=== PATIENT | female | born 1985 | race Caucasian/White ===

== ENCOUNTER → 2019-02-23 | Outpatient (CLI) | payer OTHER ==
--- NOTE | 2019-02-23 18:30 | Diagnostic Imaging Report ---
EXAMINATION: Right foot at 03:42 p.m. INDICATION: Foot pain. FINDINGS: Three views were obtained. COMPARISON: There are no prior studies available for comparison. There is no fracture, dislocation, or acute bony abnormality evident. The Lisfranc joint seems well maintained. The soft tissues are generally unremarkable. There may be mild soft tissue edema lateral to the head of the fifth metatarsal, however. IMPRESSION: There is no evidence for an acute bony abnormality. Dictated by: Dictated on workstation # [id number]
== END ==
LOC: RAD 15:31
PROVIDERS: ATTEND Pediatrics
DX: M79.671 Pain in right foot (principal)
CPT/HCPCS: 73630

== ENCOUNTER 2019-08-16 18:05 | Emergency (ER) | payer OTHER ==
[~2019-08-16] VITALS: Ht 162 cm; Wt 72.5 kg
--- OUTSIDE RECORDS SUMMARY | 2019-08-16 18:10 | XMS REPORT | Continuity of Care Document ---
Author Organization Unknown Address Unknown Phone Unavailable Allergies There is no data. Medications There is no data. Problems Date Dx Coded Attending Type Code Diagnosis Diagnosed By 02/25/2019 ZION HAYES MD, Ot M79.671 PAIN IN RIGHT FOOT 03/02/2019 ZION HAYES MD, Ot M79.671 PAIN IN RIGHT FOOT Procedures There is no data. Results There is no data. Encounters ACCT No. Visit Date/Time Discharge Status Pt. Type Provider Facility Loc./Unit Complaint [id number] 08/10/2019 15:40:00 08/10/2019 23:59: 59 [facility] Outpatient [facility] [id number] 02/23/2019 15:31:00 019 23:59:59 [facility] Outpatient ABIGAIL WALTERS, ZION cosby [facility] RAD RIGHT FOOT PAIN
[2019-08-16] MEDS ORDERED: CITA20TA12 PO (18:41)
[2019-08-16] MEDS ORDERED: NORE-93 PO (18:41)
[2019-08-16] MEDS ORDERED: ACETAMINOPHEN 325 MG TABLET PO STA (19:04)
--- NOTE | 2019-08-16 19:13 | NUR ---
Chelsey Bernabe APRN in patient's room with appropriate PPE on. COVID-19 swab completed and lab drawn. Karla HERNANDEZ outside room and collected swabs and blood. All labs double bagged and COVID-19 swab paperwork placed in bag and carried to lab. Paperwork sent to Farnaz HERNANDEZ and fiber locking supervisor notified. Droplet precautions sign placed on outside of door.
[2019-08-16 19:36] LABS: BASOPHILS % (AUTO) 0 % (0-10); EOSINOPHILS # (AUTO) 0.2 10^3/uL (0.0-0.3); EOSINOPHILS % (AUTO) 2 % (0-10); HEMATOCRIT 40 % (35-52); HEMOGLOBIN 12.8 G/DL (11.5-16.0); LYMPHOCYTES # (AUTO) 3.1 X 10^3 (1.0-4.0); LYMPHOCYTES % (AUTO) 31 % (12-44); MEAN CORPUSCULAR HEMOGLOBIN 28 PG (25-34); MEAN CORPUSCULAR HGB CONC 32 G/DL (32-36); MEAN CORPUSCULAR VOLUME 88 FL (80-99); MEAN PLATELET VOLUME 9.7 FL (7.4-10.4); MONOCYTES # (AUTO) 0.8 X 10^3 (0.0-1.0); MONOCYTES % (AUTO) 8 % (0-12); NEUTROPHILS # (AUTO) 5.8 X 10^3 (1.8-7.8); NEUTROPHILS % (AUTO) 58 % (42-75); PLATELET COUNT 348 10^3/uL (130-400); RED CELL DISTRIBUTION WIDTH 13.6 % (10.0-14.5)
--- NOTE | 2019-08-16 19:37 | Diagnostic Imaging Report ---
INDICATION: Shortness of breath with cough and congestion. FINDINGS: There are no regions of focal infiltrate or consolidation evident. There is no effusion. There is no pneumothorax. No prominent peripheral interstitial markings are evident or findings of reticulation. Heart size normal. Pulmonary vascularity appears appropriate. There is no narrowing of the tracheal air shadow. IMPRESSION: 1. No radiographic findings of focal infiltrate, effusion or consolidation. No abnormal interstitial opacities are evident by plain radiography. Dictated by: Dictated on workstation # [id number]
--- NOTE | 2019-08-16 19:50 | ED Cough/URI ---
General Chief Complaint: Cough/Cold/Flu Symptoms Stated Complaint: FEVER/COUGH/CONGESTION Nursing Triage Note: Patient ambulatory to ER room 10 with face mask in place. Patient states she has had cough, chest congestion, runny nose and fever x 1 week. She also complains of runny nose and pain to chest with taking a deep breath or coughing. She describes the pain as "my lungs burning". Patient denies any recent travel or being around anyone with positive COVID-19. She states other family mebers are sick with simalr symptoms. Patient was [place] [facility] [place] and was negative for Influeza and Strep. Sepsis Screen: No Definite Risk History of Present Illness Date Seen by Provider: Aug 16, 2019 Time Seen by Provider: 18:40 Initial Comments 34 -year-old female presents for nonproductive cough, sinus congestion and fever, present for the last 7 days. She was tested for influenza and strep 1 week ago that was negative at urgent care. She has no history of exposure to a COVID-19 positive patient, no travel outside of her home and local stores. She works from home. Here children have been coughing and congested, as well. No history of allergic rhinitis, asthma, pneumonia or any other chronic respiratory diseases. Timing/Duration: week, getting worse Severity/Quality: mild, dry cough Prior Episodes/Possible Cause: no prior episodes Associated Symptoms: chest pain/soreness, cough, fever/chills, muscle aches Allergies and Home Medications Allergies Coded Allergies: Penicillins (Verified Allergy, Intermediate, Rash, 08/16/19) cefazolin (Verified Allergy, Intermediate, Rash, 08/16/19) Home Medications Citalopram Hydrobromide 20 Mg Tablet, 20 MG PO DAILY, (Reported) Norethindrone AC-Eth Estradiol 1 Each Tablet, 1 EACH PO DAILY, (Reported) Patient Home Medication List Home Medication List Reviewed: Yes Review of Systems Review of Systems Constitutional: see HPI, fever, malaise Respiratory: see HPI, cough Gastrointestinal: no symptoms reported, see HPI : No All Other Systems Reviewed Negative Unless Noted: Yes Past Mtynakh-Fveukw-Dxjfza Hx Past Med/Social Hx: Reviewed Nursing Past Med/Soc Hx Patient Social History Alcohol Use: Denies Use Recreational Drug Use: No Smoking Status: Never a Smoker 2nd Hand Smoke Exposure: No Recent Foreign Travel: No Contact w/Someone Who Travel: No Recent Infectious Disease Expo: No Recent Hopitalizations: No Physical Abuse: No Sexual Abuse: No Mistreated: No Fear: No Immunizations Up To Date PED Vaccines UTD: Yes Seasonal Allergies Seasonal Allergies: No Past Medical History Surgeries: Yes Tonsillectomy Respiratory: No Cardiac: No Neurological: No Last Menstrual Period: Aug 09, 2019 Female Reproductive Disorders: Endometriosis Genitourinary: No Gastrointestinal: No Musculoskeletal: No Endocrine: No HEENT: No Cancer: No Psychosocial: No Integumentary: No Physical Exam Vital Signs - First Documented 08/16/19 18:29 Temp 37.2 Pulse 100 Resp 16 B/P (MAP) 135/91 (106) Pulse Ox 99 O2 Delivery Room Air Capillary Refill : Less Than 3 Seconds Height: '" Weight: lbs. oz. kg; 27.00 BMI Method: General Appearance: WD/WN, no apparent distress Eyes: Bilateral Eye Normal Inspection, Bilateral Eye PERRL, Bilateral Eye EOMI HEENT: PERRL/EOMI, normal ENT inspection, TMs normal, pharynx normal Neck: non-tender, full range of motion, supple, normal inspection Respiratory: chest non-tender, lungs clear, normal breath sounds Cardiovascular: normal peripheral pulses, regular rate, rhythm Gastrointestinal: normal bowel sounds, non tender, soft; No distended, No guarding, No rebound, No tenderness Extremities: normal range of motion, non-tender, normal inspection, normal capillary refill Neurologic/Psychiatric: no motor/sensory deficits, alert, normal mood/affect, oriented x 3 Skin: normal color, warm/dry Progress/Results/Core Measures Suspected Sepsis Recent Fever Within 48 Hours: Yes Infection Criteria Present: None New/Unexplained Altered Menta: No Sepsis Screen: No Definite Risk SIRS Temperature: Pulse: 100 Respiratory Rate: 16 Laboratory Tests 08/16/19 19:13: White Blood Count 10.0 Blood Pressure 135 /91 Mean: 106 Laboratory Tests 08/16/19 19:13: Creatinine 0.90, Platelet Count 348, Total Bilirubin 0.1 Results/Orders Lab Results Laboratory Tests Test 08/16/19 19:13 Range/Units White Blood Count 10.0 4.3-11.0 10^3/uL Red Blood Count 4.52 4.35-5.85 10^6/uL Hemoglobin 12.8 11.5-16.0 G/DL Hematocrit 40 35-52 % Mean Corpuscular Volume 88 80-99 FL Mean Corpuscular Hemoglobin 28 25-34 PG Mean Corpuscular Hemoglobin Concent 32 32-36 G/DL Red Cell Distribution Width 13.6 10.0-14.5 % Platelet Count 348 130-400 10^3/uL Mean Platelet Volume 9.7 7.4-10.4 FL Neutrophils (%) (Auto) 58 42-75 % Lymphocytes (%) (Auto) 31 12-44 % Monocytes (%) (Auto) 8 0-12 % Eosinophils (%) (Auto) 2 0-10 % Basophils (%) (Auto) 0 0-10 % Neutrophils # (Auto) 5.8 1.8-7.8 X 10^3 Lymphocytes # (Auto) 3.1 1.0-4.0 X 10^3 Monocytes # (Auto) 0.8 0.0-1.0 X 10^3 Eosinophils # (Auto) 0.2 0.0-0.3 10^3/uL Basophils # (Auto) 0.0 0.0-0.1 10^3/uL Sodium Level 140 135-145 MMOL/L Potassium Level 4.0 3.6-5.0 MMOL/L Chloride Level 107 98-107 MMOL/L Carbon Dioxide Level 23 21-32 MMOL/L Anion Gap 10 5-14 MMOL/L Blood Urea Nitrogen 13 7-18 MG/DL Creatinine 0.90 0.60-1.30 MG/DL Estimat Glomerular Filtration Rate > 60 BUN/Creatinine Ratio 14 Glucose Level 93 70-105 MG/DL Calcium Level 9.2 8.5-10.1 MG/DL Corrected Calcium 9.2 8.5-10.1 MG/DL Total Bilirubin 0.1 0.1-1.0 MG/DL Aspartate Amino Transf (AST/SGOT) 28 5-34 U/L Alanine Aminotransferase (ALT/SGPT) 58 H 0-55 U/L Alkaline Phosphatase 94 40-136 U/L Total Protein 7.5 6.4-8.2 GM/DL Albumin 4.0 3.2-4.5 GM/DL Micro Results Microbiology 08/16/19 Influenza Types A,B Antigen (SYLVIE) - Final, Complete My Orders Orders - LAN OROZCO Influenza A And B Antigens (08/16/19 18:14) Cbc With Automated Diff (08/16/19 18:54) Comprehensive Metabolic Panel (08/16/19 18:54) Chest 1 View, Ap/Pa Only (08/16/19 18:54) Acetaminophen Tablet/Caplet (Tylenol T (08/16/19 19:04) Vital Signs/I&O 08/16/19 08/16/19 18:29 20:22 Temp 37.2 37.2 Pulse 100 100 Resp 16 16 B/P (MAP) 135/91 (106) 135/91 (106) Pulse Ox 99 99 O2 Delivery Room Air Room Air Capillary Refill : Less Than 3 Seconds 2 Blood Pressure Mean: 106 Progress Note : Time: 18:40 Progress Note Patient seen and evaluated, will check for influenza and labs. 1919 Flu Neg. Will swab for COVID 19. Patient understands the risks/benefits. She is stable, no resp distress. Tylenol 650 mg orally. 2004 Labs WNL. Continues to be stable, temp 98.9. Discharge instructions and return precautions reviewed with the patient. She'll be notified of her test results when they're available. Discussed at length care for herself and her family members. Departure Impression Primary Impression: Upper respiratory infection Qualified Codes: J06.9 - Acute upper respiratory infection, unspecified Disposition: HOME, SELF-CARE Condition: Improved Departure-Patient Inst. Decision time for Depature: 20:05 Referrals: [facility] [place],LOCAL PHYSICIAN (PCP) Primary Care Physician Patient Instructions: COVID19, Cough, Adult (DC), Viral Upper Respiratory Infection, Adult (DC) Add. Discharge Instructions: Use Tylenol 650 mg every 6-8 hours for fever or pain. Quarantine yourself to home until follow-up testing is confirmed with you. Quarantine your household family members, until test results confirmed. Call your children's mechanics handyman for instructions and care, if their symptoms worsen. Notify your health care provider, by phone, if your symptoms are not improving or worsen. Call any clinic or hospital, prior to arrival, if your symptoms worsen and you need follow up. Rest, increase fluids, and do not have direct contact with anyone outside of your household members, that you have already been around. Return to the emergency dept if difficulty breathing, temperature greater than 101 degrees, not relieved by Tylenol, or new, urgent health care needs. Please call before presenting to any health care location. All discharge instructions reviewed with patient and/or family. Voiced understanding. LAN OROZCO Aug 16, 2019 19:50
[2019-08-16 19:52] LABS: ALANINE AMINOTRANSFERASE 58 U/L (0-55); ALKALINE PHOSPHATASE 94 U/L (40-136); BILIRUBIN,TOTAL 0.1 MG/DL (0.1-1.0); BUN/CREATININE RATIO 14; CALCIUM 9.2 MG/DL (8.5-10.1); CARBON DIOXIDE 23 MMOL/L (21-32); CHLORIDE 107 MMOL/L (98-107); GFR ESTIMATED > 60; GLUCOSE 93 MG/DL (70-105); SODIUM 140 MMOL/L (135-145); TOTAL PROTEIN 7.5 GM/DL (6.4-8.2)
--- NOTE | 2019-08-16 19:59 | NUR ---
Paperwork faxed to [facility].
--- NOTE | 2019-08-16 20:21 | NUR ---
Patient given discharge paperwork including COVID discharge paperwork. Patient advised to quarantine herself at home until results are back.
[2019-08-16 20:22] VITALS: BP 135/91
== END 2019-08-16 20:23 | disposition home or self-care (01) ==
LOC: EDUNIT# 18:05 → ER 18:06
DX: J06.9 Acute upper respiratory infection, unspecified (principal); Z20.818 Contact with and (suspected) exposure to other bacterial communicable diseases
CPT/HCPCS: 36415; 71045; 80053; 85025; 87635; 87804

== ENCOUNTER → 2021-03-24 | Outpatient (CLI) | payer BC ==
[~2021-03-24] MED LIST: CITA20TA12 PO; NORE-93 PO
--- NOTE | 2021-03-24 18:14 | Diagnostic Imaging Report ---
PROCEDURE: MR imaging of the brain without contrast. TECHNIQUE: Multiplanar, multisequence MR imaging of the brain was performed without contrast. INDICATION: Chronic persistent headaches. EXAMINATION: MRI of the brain without contrast 03/24/2021 FINDINGS: There is no evidence for restricted diffusion. There is no acute hemorrhage or infarct. There is no mass, mass effect or midline shift. No hydrocephalus. On FLAIR imaging, there is a tiny focus of of hyperintensity within the left frontal parietal region on image #14. This may be of no significance and could represent a tiny focus of chronic ischemic disease. A demyelinating process could cause a similar appearance but given a single abnormality felt to be less likely but not excluded at this time. This could be followed to assure stability. No other focal abnormalities noted on FLAIR imaging. The midline structures appear unremarkable. Cervical medullary junction within normal limits. There is mild mucosal thickening within the visualized sinuses with no air-fluid levels appreciated. The mastoid air cells clear. IMPRESSION: 1. Single focus of hyperintensity in the left frontal parietal lobe on FLAIR imaging which could represent a tiny focus of chronic ischemic disease. A demyelinating process felt to be less likely but not excluded at this time. Short-term follow-up could reevaluate this process and could be performed with and without contrast to exclude enhancement which would suggest an active demyelinating type process. Remaining brain unremarkable. Dictated by: Dictated on workstation # [id number]
== END ==
LOC: RAD 13:15
PROVIDERS: ATTEND Family Medicine
DX: R51.9 Headache, unspecified (principal)
CPT/HCPCS: 70551

== ENCOUNTER → 2021-04-28 | Outpatient (CLI) | payer BC ==
[~2021-04-28] MED LIST changes: +GADOTERATE 0.5 MMOL/ML (CLARISCAN) 20 ML VIAL IV ONE
--- NOTE | 2021-04-28 15:57 | Diagnostic Imaging Report ---
PROCEDURE: MR imaging of the brain with and without contrast. TECHNIQUE: Multiplanar, multisequence MR imaging of the brain was performed with and without contrast. DATE: April 28, 2021. COMPARISON: MRI brain March 24, 2021. HISTORY: 36-year-old female, headaches. FINDINGS: There is no restricted diffusion. There are no areas of abnormal intracranial susceptibility. The ventricles and CSF spaces are normal in size and configuration for patient age. There is no abnormal extra axial fluid collection. There is no acute intracranial hemorrhage. There is no mass effect or midline shift. There is a redemonstrated punctate focus of T2 and FLAIR hyperintense signal in the left frontal lobe subcortical white matter on axial T2 sequence image 14. There is no additional area of abnormal intracranial signal. There is no abnormal intracranial enhancement. There is normal aeration of the visualized paranasal sinuses and mastoid air cells. IMPRESSION: 1. Redemonstrated small focus of subcortical T2 and FLAIR hyperintense signal in the left frontal lobe which does not enhance or diffusion restrict. This could relate to early changes of chronic small vessel ischemic disease, vasculitis, sequela of chronic migraine headaches, or possibly demyelinating etiology. 2. No new white matter lesion or other area of abnormal intracranial signal. 3. No evidence of an acute intracranial process. Dictated by: Dictated on workstation # [id number]
== END ==
LOC: RAD 13:15
PROVIDERS: ATTEND Pediatrics
DX: R51.9 Headache, unspecified (principal)
CPT/HCPCS: 70553

== ENCOUNTER 2021-06-02 21:07 | Emergency (ER) | payer BC ==
[~2021-06-02] VITALS: Ht 162.6 cm; Wt 86.2 kg
[~2021-06-02 21:07] MED LIST changes: -GADOTERATE 0.5 MMOL/ML (CLARISCAN) 20 ML VIAL IV ONE
[2021-06-02] MEDS ORDERED: KETOROLAC 30 MG/ML VIAL IVP ONE (21:30)
[2021-06-02] MEDS ORDERED: NS IV 1000 ML 1,000 ML IV SCH (21:30)
[2021-06-02] MEDS ORDERED: ONDANSETRON 4 MG/2 ML (SDV) Z0FRAN IVP ONE (21:30)
[2021-06-02] MEDS ORDERED: diphenhydrAMINE 50 MG/ML INJ (BENADRYL) IM ONE (21:30)
--- NOTE | 2021-06-02 21:30 | ED GI ---
General Stated Complaint: VOMM,DIAHRREA, MIGRAINE Source of Information: Patient Exam Limitations: No Limitations History of Present Illness Date Seen by Provider: Jun 02, 2021 Time Seen by Provider: 21:28 Initial Comments Patient is a 36-year-old female who presents ED with vomiting and diarrhea since yesterday. Patient reports 10+ episodes of bilious vomiting without any blood. She reports associated diarrhea 10+ episodes without any mucus or blood. She denies of any specific abdominal pain. She states she feels dehydrated. Start developing a right-sided headache described as throbbing and associated photophobia. History of migraines and states today's pain feels very similar. She believes that the vomiting and diarrhea started before the headache. She is currently scheduled follow-up with neurology next week and was recommended to stop taking any bngx-hoq-ymmsmnc medication for her migraines. Last similar migraine was last week. She denies any fever, chest pain, cough, sore throat, neck pain, dysuria, vaginal bleeding, focal neural deficits, worse headache of her life. Last menstrual cycle 2 weeks ago. Not concern for . Not up-to-date on her Covid vaccine Allergies and Home Medications Allergies Coded Allergies: Penicillins (Verified Allergy, Intermediate, Rash, 08/16/19) cefazolin (Verified Allergy, Intermediate, Rash, 08/16/19) Patient Home Medication List Home Medication List Reviewed: Yes Citalopram Hydrobromide (Celexa) 20 Mg Tablet, 20 MG PO DAILY, (Reported) Entered as Reported by: FRANCIE QUICK on 08/16/191840 Norethindrone AC-Eth Estradiol (Loestrin 21 1-20 Tablet) 1 Each Tablet, 1 EACH PO DAILY, (Reported) Entered as Reported by: FRANCIE QUICK on 08/16/191840 Ondansetron (Ondansetron Odt) 4 Mg Tab.rapdis, 4 MG PO Q4H PRN for NAUSEA/VOMITING-1ST LINE Prescribed by: BARBARA HOPKINS on 06/02/212234 Review of Systems Review of Systems Constitutional: No chills, No diaphoresis, No fever, No malaise; weakness EENTM: No Blurred Vision, No Eye Pain, No Eye Tearing, No Ear Drainage, No Mouth Pain, No Nose Pain, No Throat Pain, No Throat Swelling Respiratory: Denies Cough, Denies SOA With Exertion, Denies SOA at Rest Cardiovascular: Denies Chest Pain, Denies Edema, Denies Irregular Heart Rate Gastrointestinal: Denies Abdominal Pain; Diarrhea, Nausea, Vomiting Genitourinary: Denies Burning, Denies Drainage, Denies Frequency Musculoskeletal: No back pain, No joint pain All Other Systems Reviewed Negative Unless Noted: Yes Past Pwjmpxh-Fackqw-Cjhddb Hx Immunizations Up To Date PED Vaccines UTD: Yes Seasonal Allergies Seasonal Allergies: No Past Medical History Surgeries: Yes Tonsillectomy Respiratory: No Cardiac: No Neurological: No Female Reproductive Disorders: Endometriosis Genitourinary: No Gastrointestinal: No Musculoskeletal: No Endocrine: No HEENT: No Cancer: No Psychosocial: No Integumentary: No Physical Exam Vital Signs Vital Signs - First Documented 06/02/21 21:21 Temp 36.2 Pulse 108 Resp 20 B/P (MAP) 135/99 (111) Pulse Ox 98 O2 Delivery Room Air Capillary Refill : Height/Weight/BMI Height: '" Weight: lbs. oz. kg; 27.00 BMI Method: General Appearance: WD/WN, no apparent distress HEENT: PERRL/EOMI, normal ENT inspection, TMs normal, pharynx normal Neck: non-tender, full range of motion Respiratory: chest non-tender, lungs clear, normal breath sounds, no accessory muscle use Cardiovascular: no edema, no gallop, no JVD, tachycardia Gastrointestinal: normal bowel sounds, non tender, soft, no organomegaly, no pulsatile mass Extremities: normal range of motion, non-tender, normal inspection Back: normal inspection, no CVA tenderness, no vertebral tenderness Neurologic/Psychiatric: lathe operator II-XII nml as tested, no motor/sensory deficits, alert, normal mood/affect, oriented x 3 Progress/Results/Core Measures Results/Orders Lab Results Laboratory Tests Test 06/02/21 21:28 06/02/21 22:34 Range/Units White Blood Count 8.0 4.3-11.0 10^3/uL Red Blood Count 4.89 3.80-5.11 10^6/uL Hemoglobin 14.0 11.5-16.0 g/dL Hematocrit 42 35-52 % Mean Corpuscular Volume 87 80-99 fL Mean Corpuscular Hemoglobin 29 25-34 pg Mean Corpuscular Hemoglobin Concent 33 32-36 g/dL Red Cell Distribution Width 13.2 10.0-14.5 % Platelet Count 329 130-400 10^3/uL Mean Platelet Volume 9.8 9.0-12.2 fL Immature Granulocyte % (Auto) 1 % Neutrophils (%) (Auto) 76 H 42-75 % Lymphocytes (%) (Auto) 17 12-44 % Monocytes (%) (Auto) 7 0-12 % Eosinophils (%) (Auto) 0 0-10 % Basophils (%) (Auto) 0 0-10 % Neutrophils # (Auto) 6.0 1.8-7.8 10^3/uL Lymphocytes # (Auto) 1.4 1.0-4.0 10^3/uL Monocytes # (Auto) 0.5 0.0-1.0 10^3/uL Eosinophils # (Auto) 0.0 0.0-0.3 10^3/uL Basophils # (Auto) 0.0 0.0-0.1 10^3/uL Immature Granulocyte # (Auto) 0.1 0.0-0.1 10^3/uL Sodium Level 138 135-145 MMOL/L Potassium Level 3.5 L 3.6-5.0 MMOL/L Chloride Level 102 98-107 MMOL/L Carbon Dioxide Level 21 21-32 MMOL/L Anion Gap 15 H 5-14 MMOL/L Blood Urea Nitrogen 17 7-18 MG/DL Creatinine 0.86 0.60-1.30 MG/DL Estimat Glomerular Filtration Rate 75 BUN/Creatinine Ratio 20 Glucose Level 127 H 70-105 MG/DL Calcium Level 8.9 8.5-10.1 MG/DL Corrected Calcium 8.8 8.5-10.1 MG/DL Total Bilirubin 0.4 0.1-1.0 MG/DL Aspartate Amino Transf (AST/SGOT) 77 H 5-34 U/L Alanine Aminotransferase (ALT/SGPT) 106 H 0-55 U/L Alkaline Phosphatase 87 40-136 U/L Total Protein 8.3 H 6.4-8.2 GM/DL Albumin 4.1 3.2-4.5 GM/DL Lipase 6 L 8-78 U/L Serum Test, Qualitative NEGATIVE NEGATIVE Influenza Type A (RT-PCR) Not Detected Not Detecte Influenza Type B (RT-PCR) Not Detected Not Detecte SARS-CoV-2 RNA (RT-PCR) Not Detected Not Detecte Urine Color YELLOW Urine Clarity CLEAR Urine pH 6.0 5-9 Urine Specific [place] >=1.030 1.016-1.022 Urine Protein 1+ H NEGATIVE Urine Glucose (UA) NEGATIVE NEGATIVE Urine Ketones 1+ H NEGATIVE Urine Nitrite NEGATIVE NEGATIVE Urine Bilirubin NEGATIVE NEGATIVE Urine Urobilinogen 0.2 < = 1.0 MG/DL Urine Leukocyte Esterase NEGATIVE NEGATIVE Urine RBC (Auto) NEGATIVE NEGATIVE Urine RBC 0-2 /HPF Urine WBC 0-2 /HPF Urine Squamous Epithelial Cells 2-5 /HPF Urine Crystals NONE /LPF Urine Bacteria MODERATE H /HPF Urine Casts NONE /LPF Urine Mucus LARGE H /LPF Urine Culture Indicated YES Micro Results Microbiology 06/02/21 Urine Culture - Final, Complete 3 or more isolates My Orders Orders - ZAIDA PEOPLES Cbc With Automated Diff (06/02/21 21:25) Comprehensive Metabolic Panel (06/02/21 21:25) Lipase (06/02/21 21:25) Hcg,Qualitative Serum (06/02/21 21:25) Ua Culture If Indicated (06/02/21 21:25) Covid 19 Inhouse Test (06/02/21 21:25) Influenza A And B By Pcr (06/02/21 21:25) Ns Iv 1000 Ml (Sodium Chloride 0.9%) (06/02/21 21:30) Ondansetron Injection (Zofran Injectio (06/02/21 21:30) Ketorolac Injection (Toradol Injection) (06/02/21 21:30) Diphenhydramine Injection (Benadryl Inje (06/02/21 21:30) Diphenhydramine Injection (Benadryl Inje (06/02/21 21:41) Ns Iv 1000 Ml (Sodium Chloride 0.9%) (06/02/21 22:36) Urine Culture (06/02/21 22:34) Medications Given in ED Vital Signs/I&O 06/02/21 06/02/21 21:21 23:46 Temp 36.2 Pulse 108 98 Resp 20 18 B/P (MAP) 135/99 (111) 112/82 Pulse Ox 98 92 O2 Delivery Room Air Room Air Departure Communication (Admissions) Patient with vomiting or diarrhea for the past 1-1/2 days. with similar symptoms. She has not been able to eat or drink. Patient urine does show leukocytes with squamous cells. Likely contamination. Culture pending. Patient reports headache. History of migraines currently scheduled follow-up with neurology next week. She is not take any medication as this was recommended by neurology. She was given migraine cocktail with IV fluids. Patient be hydrated here in the ED. Normal white blood count. No specific abdominal pain. She has no abdominal tenderness. No surgical abdomen. Patient was given a second liter of fluid secondary to her dehydration. Patient symptoms appear to be improving. Patient will be discharged with strict follow- up. Return precautions were discussed. Covid and influenza negative. Likely viral in nature. Impression Primary Impression: Vomiting and diarrhea Disposition: HOME, SELF-CARE Condition: Stable Departure-Patient Inst. Decision time for Depature: 22:32 Referrals: NO,LOCAL PHYSICIAN (PCP/Family) Primary Care Physician Patient Instructions: Nausea and Vomiting, Adult Add. Discharge Instructions: Recommend taken Zofran for nausea vomiting at home. Continue with lnuu-bzb-obcremi medication for the headache. If any worsening symptoms return back to ED for further evaluation. Recommend hydration. Scripts Ondansetron (Ondansetron Odt) 4 Mg Tab.rapdis 4 MG PO Q4H PRN for NAUSEA/VOMITING-1ST LINE, #10 TAB Prov: ZAIDA PEOPLES 06/02/21 ZAIDA PEOPLES Jun 02, 2021 21:30
[2021-06-02 21:38] LABS: BASOPHILS % (AUTO) 0 % (0-10); EOSINOPHILS % (AUTO) 0 % (0-10); HEMATOCRIT 42 % (35-52); LYMPHOCYTES # (AUTO) 1.4 10^3/uL (1.0-4.0); LYMPHOCYTES % (AUTO) 17 % (12-44); MEAN CORPUSCULAR HEMOGLOBIN 29 pg (25-34); MEAN CORPUSCULAR HGB CONC 33 g/dL (32-36); MEAN CORPUSCULAR VOLUME 87 fL (80-99); MEAN PLATELET VOLUME 9.8 fL (9.0-12.2); MONOCYTES # (AUTO) 0.5 10^3/uL (0.0-1.0); MONOCYTES % (AUTO) 7 % (0-12); NEUTROPHILS % (AUTO) 76 % (42-75); PLATELET COUNT 329 10^3/uL (130-400)
[2021-06-02] MEDS ORDERED: diphenhydrAMINE 50 MG/ML INJ (BENADRYL) IVP STA (21:41)
[2021-06-02 21:54] LABS: ALBUMIN 4.1 GM/DL (3.2-4.5); POTASSIUM 3.5 MMOL/L (3.6-5.0)
[2021-06-02 21:55] LABS: CALCIUM 8.9 MG/DL (8.5-10.1)
[2021-06-02 21:56] LABS: TOTAL PROTEIN 8.3 GM/DL (6.4-8.2)
[2021-06-02 21:58] LABS: BILIRUBIN,TOTAL 0.4 MG/DL (0.1-1.0)
[2021-06-02 22:00] LABS: CREATININE SERUM 0.86 MG/DL (0.60-1.30)
[2021-06-02] MEDS ORDERED: ONDA4TAB11 PO (22:35)
[2021-06-02] MEDS ORDERED: NS IV 1000 ML 1,000 ML IV STA (22:36)
[2021-06-02] MEDS ORDERED: ACETAMINOPHEN 500 MG TAB (TYLENOL) PO STA (22:41)
[2021-06-02 22:42] LABS: BILIRUBIN,URINE NEGATIVE (NEGATIVE); CLARITY,URINE CLEAR; COLOR,URINE YELLOW; GLUCOSE, URINE (UA) NEGATIVE (NEGATIVE); KETONES,URINE 1+ (NEGATIVE); LEUKOCYTE ESTERASE ,URINE NEGATIVE (NEGATIVE); NITRITE,URINE NEGATIVE (NEGATIVE); PROTEIN,URINE 1+ (NEGATIVE)
[2021-06-02 22:49] LABS: RBC,URINE 0-2 /HPF; WBC,URINE 0-2 /HPF
[2021-06-02 22:50] LABS: BACTERIA,URINE MODERATE /HPF
[2021-06-02 23:46] VITALS: BP 112/82
== END 2021-06-02 23:46 | disposition home or self-care (01) ==
LOC: EDUNIT# 21:07 → ER 21:14
DX: R11.10 Vomiting, unspecified (principal); R19.7 Diarrhea, unspecified; Z20.822 Contact with and (suspected) exposure to COVID-19
CPT/HCPCS: 36415; 80053; 81000; 83690; 84703; 85025; 87088; 87636

== ENCOUNTER 2021-06-26 11:27 | Emergency (ER) | payer BC ==
[~2021-06-26] VITALS: Ht 160 cm; Wt 79.4 kg
[~2021-06-26 11:27] MED LIST changes: +ONDA4TAB11 PO
--- NOTE | 2021-06-26 11:55 | ED General ---
General Stated Complaint: HEADACHES, VOMITING,STOMACH PAIN,BODY ACHES,COVID Source of Information: Patient Exam Limitations: No Limitations History of Present Illness Date Seen by Provider: Jun 26, 2021 Time Seen by Provider: 11:52 Initial Comments to ER by private vehicle with headaches nausea vomiting. She became symptomatic with Covid on 06/21/2021. Tested positive at a drive-through testing clinic on 06/23/2021. She is unvaccinated against Covid. She is been having bad headaches even before this and was initially seen here in the ER with negative CT head. She then followed up with a telehealth visit with a neurologist from [place]. She was prescribed a week course of prednisone which significantly helped her headaches as his suspicion was for a BOARDING SPECIALIST vasculitis. She comes in today with recurrent headaches Timing/Duration: 1-2 Days Severity: Moderate Associated Systoms: Headaches, Nausea/Vomiting Allergies and Home Medications Allergies Coded Allergies: Penicillins (Verified Allergy, Intermediate, Rash, 08/16/19) cefazolin (Verified Allergy, Intermediate, Rash, 08/16/19) Patient Home Medication List Home Medication List Reviewed: Yes Citalopram Hydrobromide (Celexa) 20 Mg Tablet, 20 MG PO DAILY, (Reported) Entered as Reported by: FRANCIE QUICK on 08/16/191840 Norethindrone AC-Eth Estradiol (Loestrin 21 1-20 Tablet) 1 Each Tablet, 1 EACH PO DAILY, (Reported) Entered as Reported by: FRANCIE QUICK on 08/16/19 184 Ondansetron (Ondansetron Odt) 4 Mg Tab.rapdis, 4 MG PO Q4H PRN for NAUSE A/VOMITING-1ST LINE Prescribed by: BARBARA HOPKINS on 06/02/212234 Review of Systems Review of Systems Constitutional: see HPI; No chills, No fever EENTM: see HPI Respiratory: see HPI, cough Cardiovascular: no symptoms reported Gastrointestinal: nausea, vomiting Genitourinary: no symptoms reported Musculoskeletal: no symptoms reported Skin: no symptoms reported Psychiatric/Neurological: See HPI, Headache Hematologic/Lymphatic: No Symptoms Reported Immunological/Allergic: no symptoms reported Past Cibvapr-Tordqe-Cnsngh Hx Immunizations Up To Date PED Vaccines UTD: Yes First/Initial COVID19 Vaccinat: NONE Second COVID19 Vaccination Ras: NONE Third COVID19 Vaccination Date: NONE Seasonal Allergies Seasonal Allergies: No Past Medical History Surgeries: Yes Tonsillectomy Respiratory: No Cardiac: No Neurological: No Female Reproductive Disorders: Endometriosis Genitourinary: No Gastrointestinal: No Musculoskeletal: No Endocrine: No HEENT: No Cancer: No Psychosocial: No Integumentary: No Physical Exam Vital Signs Vital Signs - First Documented 06/26/21 11:44 Temp 36.9 Pulse 120 Resp 17 B/P (MAP) 136/97 (110) O2 Delivery Room Air Capillary Refill : Height, Weight, BMI Height: '" Weight: lbs. oz. kg; 32.00 BMI Method: General Appearance: No Apparent Distress, WD/WN, Other (O2 95% room air) Eyes: Bilateral Eye Normal Inspection, Bilateral Eye PERRL, Bilateral Eye EOMI Neck: Full Range of Motion, Normal Inspection Respiratory: Normal Breath Sounds, No Accessory Muscle Use, No Respiratory Distress Cardiovascular: Normal Peripheral Pulses, Tachycardia, Other (hr 120s) Gastrointestinal: Normal Bowel Sounds, Non Tender, Soft Extremity: Normal Capillary Refill, Normal Inspection, Normal Range of Motion Neurologic/Psychiatric: Alert, Oriented x3 Skin: Normal Color, Warm/Dry Progress/Results/Core Measures Suspected Sepsis SIRS Temperature: Pulse: Respiratory Rate: Laboratory Tests 06/26/21 11:56: White Blood Count 7.8 Blood Pressure / Mean: Laboratory Tests 06/26/21 11:56: Creatinine 0.77, Platelet Count 248, Total Bilirubin 0.4 Results/Orders Lab Results Laboratory Tests Test 06/26/21 11:56 Range/Units White Blood Count 7.8 4.3-11.0 10^3/uL Red Blood Count 5.14 H 3.80-5.11 10^6/uL Hemoglobin 14.6 11.5-16.0 g/dL Hematocrit 45 35-52 % Mean Corpuscular Volume 87 80-99 fL Mean Corpuscular Hemoglobin 28 25-34 pg Mean Corpuscular Hemoglobin Concent 33 32-36 g/dL Red Cell Distribution Width 13.3 10.0-14.5 % Platelet Count 248 130-400 10^3/uL Mean Platelet Volume 9.9 9.0-12.2 fL Immature Granulocyte % (Auto) 1 % Neutrophils (%) (Auto) 66 42-75 % Lymphocytes (%) (Auto) 25 12-44 % Monocytes (%) (Auto) 8 0-12 % Eosinophils (%) (Auto) 0 0-10 % Basophils (%) (Auto) 0 0-10 % Neutrophils # (Auto) 5.1 1.8-7.8 10^3/uL Lymphocytes # (Auto) 1.9 1.0-4.0 10^3/uL Monocytes # (Auto) 0.6 0.0-1.0 10^3/uL Eosinophils # (Auto) 0.0 0.0-0.3 10^3/uL Basophils # (Auto) 0.0 0.0-0.1 10^3/uL Immature Granulocyte # (Auto) 0.1 0.0-0.1 10^3/uL Sodium Level 137 135-145 MMOL/L Potassium Level 3.9 3.6-5.0 MMOL/L Chloride Level 104 98-107 MMOL/L Carbon Dioxide Level 20 L 21-32 MMOL/L Anion Gap 13 5-14 MMOL/L Blood Urea Nitrogen 14 7-18 MG/DL Creatinine 0.77 0.60-1.30 MG/DL Estimat Glomerular Filtration Rate 103 BUN/Creatinine Ratio 18 Glucose Level 101 70-105 MG/DL Calcium Level 9.1 8.5-10.1 MG/DL Corrected Calcium 8.9 8.5-10.1 MG/DL Total Bilirubin 0.4 0.1-1.0 MG/DL Aspartate Amino Transf (AST/SGOT) 110 H 5-34 U/L Alanine Aminotransferase (ALT/SGPT) 207 H 0-55 U/L Alkaline Phosphatase 92 40-136 U/L Total Protein 8.3 H 6.4-8.2 GM/DL Albumin 4.2 3.2-4.5 GM/DL Serum Test, Qualitative NEGATIVE NEGATIVE My Orders Orders - STEPAN ARVIZU APRN Cbc With Automated Diff (06/26/21 11:51) Comprehensive Metabolic Panel (06/26/21 11:51) Hcg,Qualitative Serum (06/26/21 11:51) Ed Iv/Invasive Line Start (06/26/21 11:51) Lactated Ringers (Lr 1000 Ml Iv Solution (06/26/21 12:00) Ketorolac Injection (Toradol Injection) (06/26/21 12:00) Prochlorperazine Injection (Compazine In (06/26/21 12:00) Diphenhydramine Injection (Benadryl Inje (06/26/21 12:00) Medications Given in ED Current Medications Medications Dose Ordered Sig/Joy Route Start Time Stop Time Status Last Admin Dose Admin Diphenhydramine HCl 25 mg ONCE ONCE IVP 06/26/21 12:00 06/26/21 12:01 DC 06/26/21 12:10 25 MG Ketorolac Tromethamine 15 mg ONCE ONCE IVP 06/26/21 12:00 06/26/21 12:01 DC 06/26/21 12:11 15 MG Prochlorperazine Edisylate 5 mg ONCE ONCE IV 06/26/21 12:00 06/26/21 12:01 DC 06/26/21 12:11 5 MG Vital Signs/I&O 06/26/21 06/26/21 11:44 11:44 Temp 36.9 Pulse 120 Resp 17 B/P (MAP) 136/97 (110) O2 Delivery Room Air Room Air Capillary Refill : Departure Impression Primary Impression: COVID-19 Additional Impression: Headache Disposition: 01 HOME, SELF-CARE Condition: Stable Departure-Patient Inst. Decision time for Depature: 12:14 Referrals: NO,LOCAL PHYSICIAN (PCP) Primary Care Physician Patient Instructions: COVID-19 ED Add. Discharge Instructions: 1. Return to ER for any concerns 2. Follow-up with your doctor next week. Your liver enzymes were a little elevated, this just warrants a recheck in a week or 2. STEPAN ARVIZU APRN Jun 26, 2021 11:55
[2021-06-26] MEDS ORDERED: LACTATED RINGERS 1,000 ML IV SCH (12:00)
[2021-06-26] MEDS ORDERED: KETOROLAC 30 MG/ML VIAL IVP ONE (12:00)
[2021-06-26] MEDS ORDERED: diphenhydrAMINE 50 MG/ML INJ (BENADRYL) IVP ONE (12:00)
[2021-06-26] MEDS ORDERED: PROCHLORPERAZINE 10 MG/2ML INJ (COMPAZINE) IV ONE (12:00)
[2021-06-26 12:02] LABS: BASOPHILS % (AUTO) 0 % (0-10); EOSINOPHILS % (AUTO) 0 % (0-10); HEMATOCRIT 45 % (35-52); HEMOGLOBIN 14.6 g/dL (11.5-16.0); LYMPHOCYTES # (AUTO) 1.9 10^3/uL (1.0-4.0); LYMPHOCYTES % (AUTO) 25 % (12-44); MEAN CORPUSCULAR HEMOGLOBIN 28 pg (25-34); MEAN CORPUSCULAR HGB CONC 33 g/dL (32-36); MEAN CORPUSCULAR VOLUME 87 fL (80-99); MEAN PLATELET VOLUME 9.9 fL (9.0-12.2); MONOCYTES # (AUTO) 0.6 10^3/uL (0.0-1.0); MONOCYTES % (AUTO) 8 % (0-12); NEUTROPHILS # (AUTO) 5.1 10^3/uL (1.8-7.8); NEUTROPHILS % (AUTO) 66 % (42-75); PLATELET COUNT 248 10^3/uL (130-400); WHITE BLOOD COUNT 7.8 10^3/uL (4.3-11.0)
[2021-06-26 12:12] LABS: ALBUMIN 4.2 GM/DL (3.2-4.5); POTASSIUM 3.9 MMOL/L (3.6-5.0)
[2021-06-26 12:14] LABS: CALCIUM 9.1 MG/DL (8.5-10.1)
[2021-06-26 12:15] LABS: TOTAL PROTEIN 8.3 GM/DL (6.4-8.2)
[2021-06-26 12:17] LABS: BILIRUBIN,TOTAL 0.4 MG/DL (0.1-1.0)
[2021-06-26 12:18] LABS: CREATININE SERUM 0.77 MG/DL (0.60-1.30)
[2021-06-26 13:18] VITALS: BP 136/81
== END 2021-06-26 13:20 | disposition home or self-care (01) ==
LOC: EDUNIT# 11:27 → ER 11:33
DX: U07.1 COVID-19 (principal); Z73.0 Burn-out; Z32.02 Encounter for pregnancy test, result negative
CPT/HCPCS: 36415; 80053; 84703; 85025

== ENCOUNTER 2021-11-08 16:44 | Emergency (ER) | payer BC ==
[2021-11-08] MEDS ORDERED: morphine INJ 10 MG/ML 1ML (SYR OR VIAL) IV STA (17:11)
[2021-11-08] MEDS ORDERED: ASPIRIN 81 MG CHEW (CHILDREN'S ASA) PO ONE (17:15)
--- NOTE | 2021-11-08 17:15 | ED Chest Pain ---
General Chief Complaint: Chest Pain Stated Complaint: CHEST PAIN Source: patient Exam Limitations: no limitations (ZAIDA PEOPLES) History of Present Illness Date Seen by Provider: Nov 08, 2021 Time Seen by Provider: 17:12 Initial Comments Patient is a 36-year-old female who presents ED with chest pain. Chest pain started around 4:00 today while driving. Describes this more as her pressure with radiation to her right jaw. She states pain has improved rates 3 out of 10 at this time. She has had this intermittent chest pressure in the past. She states typically the pain last for a few minutes. She has associated shortness of breath with nausea without vomiting or diarrhea. No history of coronary artery disease, CHF, PE. Denies any leg swelling or recent travels or surgeries. She is currently on control. She does take aspirin periodically during these episodes. Strong family cardiac history without a history of hypertension, diabetes, high cholesterol, smoking. Denies abdominal pain, fever, chills, visual changes, dizziness or headache. She is currently tapering off prednisone as she was placed on prednisone 3 months ago concerning for vasculitis. She saw neurology and states that she has no history of vasculitis. (ZAIDA PEOPLES) Allergies and Home Medications Allergies Coded Allergies: Penicillins (Verified Allergy, Intermediate, Rash, 08/16/19) cefazolin (Verified Allergy, Intermediate, Rash, 08/16/19) Patient Home Medication List Home Medication List Reviewed: Yes (ZAIDA PEOPLES) Citalopram Hydrobromide (Celexa) 20 Mg Tablet, 20 MG PO DAILY, (Reported) Entered as Reported by: FRANCIE QUICK on 08/16/191840 Norethindrone AC-Eth Estradiol (Loestrin 21 1-20 Tablet) 1 Each Tablet, 1 EACH PO DAILY, (Reported) Entered as Reported by: FRANCIE QUICK on 08/16/191840 Ondansetron (Ondansetron Odt) 4 Mg Tab.rapdis, 4 MG PO Q4H PRN for NAUSEA/VOMITING-1ST LINE Prescribed by: BARBARA HOPKINS on 06/02/21 001 Review of Systems Review of Systems Constitutional: No chills, No diaphoresis, No fever, No malaise EENTM: No Blurred Vision, No Double Vision, No Eye Pain Respiratory: Denies Cough; Shortness of Air Cardiovascular: Chest Pain, Edema Gastrointestinal: Denies Abdomen Distended, Denies Abdominal Pain, Denies Diarrhea; Nausea; Denies Vomiting Genitourinary: Denies Burning, Denies Discharge Musculoskeletal: No back pain, No joint pain Skin: No change in color, No change in hair/nails (ZAIDA PEOPLES) All Other Systems Reviewed Negative Unless Noted: Yes (ZAIDA PEOPLES) Past Odmeiub-Jexdwa-Drfixe Hx Immunizations Up To Date PED Vaccines UTD: Yes First/Initial COVID19 Vaccinat: NONE Second COVID19 Vaccination Ras: NONE Third COVID19 Vaccination Date: NONE (ZAIDA PEOPLES) Seasonal Allergies Seasonal Allergies: No (ZAIDA PEOPLES) Past Medical History Surgeries: Yes Tonsillectomy Respiratory: No Cardiac: No Neurological: No Female Reproductive Disorders: Endometriosis Genitourinary: No Gastrointestinal: No Musculoskeletal: No Endocrine: No HEENT: No Cancer: No Psychosocial: No Integumentary: No (ZAIDA PEOPLES) Physical Exam Vital Signs Vital Signs - First Documented 11/08/21 22:33 Temp 37.0 Pulse 99 Resp 18 B/P (MAP) 129/87 Pulse Ox 100 O2 Delivery Room Air (ULISES CATHERINE MD) Vital Signs Capillary Refill : (ZAIDA PEOPLES) Height, Weight, BMI Height: '" Weight: lbs. oz. kg; 31.00 BMI Method: General Appearance: No Apparent Distress, WD/WN HEENT: PERRL/EOMI, TMs Normal, Normal ENT Inspection, Pharynx Normal Neck: Full Range of Motion, Normal Inspection, Non Tender, Supple Respiratory: Chest Non Tender, Lungs Clear, Normal Breath Sounds, No Accessory Muscle Use, No Respiratory Distress Cardiovascular: Regular Rate, Rhythm, No Edema, No Gallop, No JVD, No Murmur Gastrointestinal: Normal Bowel Sounds, No Organomegaly, No Pulsatile Mass, Non Tender, Soft Neurologic/Psychiatric: Alert, Oriented x3, No Motor/Sensory Deficits, Normal Mood/Affect Skin: Normal Color, Warm/Dry (ZAIDA PEOPLES) Progress/Results/Core Measures Results/Orders Lab Results Laboratory Tests Test 11/08/21 17:07 11/08/21 20:43 Range/Units White Blood Count 15.9 H 4.3-11.0 10^3/uL Red Blood Count 5.18 H 3.80-5.11 10^6/uL Hemoglobin 14.9 11.5-16.0 g/dL Hematocrit 46 35-52 % Mean Corpuscular Volume 88 80-99 fL Mean Corpuscular Hemoglobin 29 25-34 pg Mean Corpuscular Hemoglobin Concent 33 32-36 g/dL Red Cell Distribution Width 14.0 10.0-14.5 % Platelet Count 391 130-400 10^3/uL Mean Platelet Volume 9.6 9.0-12.2 fL Immature Granulocyte % (Auto) 2 % Neutrophils (%) (Auto) 66 42-75 % Lymphocytes (%) (Auto) 27 12-44 % Monocytes (%) (Auto) 4 0-12 % Eosinophils (%) (Auto) 0 0-10 % Basophils (%) (Auto) 0 0-10 % Neutrophils # (Auto) 10.5 H 1.8-7.8 10^3/uL Lymphocytes # (Auto) 4.3 H 1.0-4.0 10^3/uL Monocytes # (Auto) 0.7 0.0-1.0 10^3/uL Eosinophils # (Auto) 0.0 0.0-0.3 10^3/uL Basophils # (Auto) 0.1 0.0-0.1 10^3/uL Immature Granulocyte # (Auto) 0.3 H 0.0-0.1 10^3/uL Neutrophils % (Manual) 60 % Lymphocytes % (Manual) 31 % Monocytes % (Manual) 9 % Blood Morphology Comment NORMAL Prothrombin Time 12.3 12.2-14.7 SEC INR Comment 0.9 0.8-1.4 Activated Partial Thromboplast Time 24 24-35 SEC D-Dimer 0.35 0.00-0.49 UG/ML Sodium Level 137 135-145 MMOL/L Potassium Level 4.2 3.6-5.0 MMOL/L Chloride Level 100 98-107 MMOL/L Carbon Dioxide Level 24 21-32 MMOL/L Anion Gap 13 5-14 MMOL/L Blood Urea Nitrogen 21 H 7-18 MG/DL Creatinine 0.95 0.60-1.30 MG/DL Estimat Glomerular Filtration Rate 80 BUN/Creatinine Ratio 22 Glucose Level 88 70-105 MG/DL Calcium Level 10.3 H 8.5-10.1 MG/DL Corrected Calcium 9.9 8.5-10.1 MG/DL Magnesium Level 2.5 H 1.6-2.4 MG/DL Total Bilirubin 0.4 0.1-1.0 MG/DL Aspartate Amino Transf (AST/SGOT) 97 H 5-34 U/L Alanine Aminotransferase (ALT/SGPT) 206 H 0-55 U/L Alkaline Phosphatase 78 40-136 U/L Troponin I < 0.028 < 0.028 <0.028 NG/ML B-Type Natriuretic Peptide < 10.0 <100.0 PG/ML Total Protein 8.3 H 6.4-8.2 GM/DL Albumin 4.5 3.2-4.5 GM/DL (ULISES CATHERINE MD) My Orders Orders - ULISES CATHERINE MD Ekg Tracing (11/08/21 17:03) (ULISES CATHERINE MD) Vital Signs/I&O 11/08/21 11/08/21 22:33 22:37 Temp 37.0 37.0 Pulse 99 112 Resp 18 18 B/P (MAP) 129/87 132/116 (121) Pulse Ox 100 O2 Delivery Room Air 11/09/21 00:00 Intake Total 1000 ml Balance 1000 ml (ULISES CATHERINE MD) Comment Sinus rhythm, left axis deviation, incomplete right bundle branch block, minimal voltage criteria for LVH, 72 bpm, QRS duration 96 MS, QTc 404 MS. (ZAIDA PEOPLES) Departure Communication (PCP) Patient with chest pain. On arrival EKG without evidence of ST elevation, depression or arrhythmia. She has drained was negative for pneumonia, pneu mothorax. Lab work showed elevated white blood count. Currently tapering off steroids. Which is likely the result. She denies of any recent cough, URI symptoms,abdominal pain, vomiting, diarrhea. She has no abdominal tenderness on palpation. Patient was given aspirin and morphine on arrival without much improvement. Was given a sublingual nitro with improvement of pain. Patient heart score of 1. She had a negative D-dimer. No leg swelling, leg pain. No evidence of CHF. Normal troponin initially. Due to the improvement after the sublingual nitro and recent acute chest pain. Recommend serial troponin. Serial troponin was negative. She started Velp pain here once again and was given GI cocktail with fentanyl with improvement of pain. After talking with patient she states she has a family history of esophageal pathology. Patient may have some form esophageal spasming. She did have elevated liver enzymes which appear to be chronic. Likely fatty liver. She has no right upper quadrant or epigastric tenderness. No GI symptoms suggesting GI etiology. Due to the low heart score and second negative serial troponin patient will follow- up outpatient for further evaluation. Recommend cardiac outpatient follow-up with work-up. If any worsening symptoms return back to ED. She denies of any severe pain after eating. Denies burping or indigestion. Discussed if the symptoms do develop recommend PPI such as Protonix. Symptoms may be related to esophageal spasming. She reports similar symptoms in the past but due to the location recommend cardiac outpatient work-up. She agrees with this plan of action. Provided cardiology outpatient follow-up (ZAIDA PEOPLES) Impression Primary Impression: Chest pain Disposition: 01 HOME, SELF-CARE Condition: Stable Departure-Patient Inst. Decision time for Depature: 22:24 (ZAIDA PEOPLES) Referrals: NO,LOCAL PHYSICIAN (PCP) Primary Care Physician ANIBAL MARTINEZ JR, MD Patient Instructions: Chest Pain Add. Discharge Instructions: Recommend follow-up with your primary care physician for further evaluation. If any worsening pain to return back to ED for further evaluation. All discharge instructions reviewed with patient and/or family. Voiced understanding. ATTENDING PHYSICIAN NOTE: I was physically present as attending physician in the emergency department during the care of this patient, but I was not directly involved in the decision making or delivery of care for this patient. (ULISES CATHERINE MD) ZAIDA PEOPLES Nov 08, 2021 17:15 ULISES CATHERINE MD Nov 09, 2021 21:31
[2021-11-08 17:24] LABS: BASOPHILS # (AUTO) 0.1 10^3/uL (0.0-0.1); BASOPHILS % (AUTO) 0 % (0-10); EOSINOPHILS % (AUTO) 0 % (0-10); HEMATOCRIT 46 % (35-52); HEMOGLOBIN 14.9 g/dL (11.5-16.0); LYMPHOCYTES # (AUTO) 4.3 10^3/uL (1.0-4.0); LYMPHOCYTES % (AUTO) 27 % (12-44); MEAN CORPUSCULAR HEMOGLOBIN 29 pg (25-34); MEAN CORPUSCULAR HGB CONC 33 g/dL (32-36); MEAN CORPUSCULAR VOLUME 88 fL (80-99); MEAN PLATELET VOLUME 9.6 fL (9.0-12.2); MONOCYTES # (AUTO) 0.7 10^3/uL (0.0-1.0); MONOCYTES % (AUTO) 4 % (0-12); NEUTROPHILS # (AUTO) 10.5 10^3/uL (1.8-7.8); NEUTROPHILS % (AUTO) 66 % (42-75); PLATELET COUNT 391 10^3/uL (130-400); WHITE BLOOD COUNT 15.9 10^3/uL (4.3-11.0)
[2021-11-08 17:37] LABS: ALBUMIN 4.5 GM/DL (3.2-4.5)
[2021-11-08 17:38] LABS: POTASSIUM 4.2 MMOL/L (3.6-5.0)
[2021-11-08 17:39] LABS: CALCIUM 10.3 MG/DL (8.5-10.1)
[2021-11-08 17:40] LABS: TOTAL PROTEIN 8.3 GM/DL (6.4-8.2)
[2021-11-08 17:42] LABS: BILIRUBIN,TOTAL 0.4 MG/DL (0.1-1.0)
[2021-11-08 17:44] LABS: CREATININE SERUM 0.95 MG/DL (0.60-1.30); INR 0.9 (0.8-1.4); PROTHROMBIN TIME PATIENT 12.3 SEC (12.2-14.7)
[2021-11-08 17:47] LABS: MAGNESIUM 2.5 MG/DL (1.6-2.4)
--- NOTE | 2021-11-08 17:48 | Diagnostic Imaging Report ---
EXAM: CHEST 1 VIEW, AP/PA ONLY INDICATION: Chest pain. COMPARISON: 08/15/2021. FINDINGS: Normal heart size and pulmonary vascularity. No dense consolidation, pleural effusion or pneumothorax. No acute osseous findings. No significant change. IMPRESSION: No acute cardiopulmonary findings. Dictated by: Dictated on workstation # [id number]
[2021-11-08 17:53] LABS: LYMPHOCYTES % (MANUAL) 31 %; MONOCYTES % (MANUAL) 9 %; NEUTROPHILS % (MANUAL) 60 %; RBC MORPH NORMAL
[2021-11-08] MEDS ORDERED: NS IV 1000 ML 1,000 ML IV STA (17:54)
[2021-11-08] MEDS ORDERED: NITROGLYCERIN 0.4 MG SL TABS BTL 25'S SL PRN (18:15)
[2021-11-08] MEDS ORDERED: fentaNYL INJ 100 MCG/2 ML AMP IVP STA (21:02)
[2021-11-08] MEDS ORDERED: LIDOCAINE 2% VISCOUS 15 ML UDC PO ONE (21:15)
[2021-11-08] MEDS ORDERED: ANTACID SUSP 30 ML UDC (MYLANTA) PO ONE (21:15)
[2021-11-08 22:37] VITALS: BP 132/116
== END 2021-11-08 22:32 | disposition home or self-care (01) ==
LOC: ER 16:44
DX: R07.89 Other chest pain (principal); D72.829 Elevated white blood cell count, unspecified; R94.5 Abnormal results of liver function studies; Z28.310 Unvaccinated for COVID-19
CPT/HCPCS: 36415; 71045; 80053; 83735; 83880; 84484; 85007; 85027; 85379; 85610; 85730; 93005

== ENCOUNTER 2021-11-29 07:41 | Emergency (ER) | payer BC ==
[~2021-11-29] VITALS: Ht 162.5 cm; Wt 90.7 kg
--- NOTE | 2021-11-29 07:57 | ED Neurological Problem ---
General Chief Complaint: Neurological Problems Stated Complaint: LEFT SIDE FACE PARALYZED Source: patient Exam Limitations: no limitations History of Present Illness Date Seen by Provider: Nov 29, 2021 Time Seen by Provider: 07:44 Initial Comments Patient to the ER by private conveyance tearful with concerns of left facial drooping and some pain in her left ear. She started noticing the pain yesterday but it did not feel like a typical earache. No discharge from the ear. She was traveling back home from [place] by car when she noticed it. She does not have any heart or stroke issues. No confusion, visual changes, difficulty swallowing, difficulty walking or weakness in either side of her body. Allergies and Home Medications Allergies Coded Allergies: Penicillins (Verified Allergy, Intermediate, Rash, 08/16/19) cefazolin (Verified Allergy, Intermediate, Rash, 08/16/19) Patient Home Medication List Home Medication List Reviewed: Yes Citalopram Hydrobromide (Celexa) 20 Mg Tablet, 20 MG PO DAILY, (Reported) Entered as Reported by: FRANCIE QUICK on 08/16/191840 Norethindrone AC-Eth Estradiol (Loestrin 21 1-20 Tablet) 1 Each Tablet, 1 EACH PO DAILY, (Reported) Entered as Reported by: FRANCIE QUICK on 08/16/191840 Ondansetron (Ondansetron Odt) 4 Mg Tab.rapdis, 4 MG PO Q4H PRN for NAUSEA/VOMITING-1ST LINE Prescribed by: BARBARA HOPKINS on 06/02/21 8079 Review of Systems Review of Systems Constitutional: No chills, No diaphoresis Eyes: Denies Blindness, Denies Drainage Ears, Nose, Mouth, Throat: denies ear pain, denies ear discharge Respiratory: No cough, No short of breath Cardiovascular: No edema, No palpitations Gastrointestinal: No abdominal pain, No nausea, No vomiting Genitourinary: No discharge, No dysuria Musculoskeletal: No back pain, No joint pain Skin: No pruritus, No rash All Other Systems Reviewed Negative Unless Noted: Yes Past Fgnbxjd-Iozsnp-Coynls Hx Patient Social History Tobacco Use?: No Use of E-Cig and/or Vaping dev: No Substance use?: No Alcohol Use?: No Immunizations Up To Date PED Vaccines UTD: Yes First/Initial COVID19 Vaccinat: NONE Second COVID19 Vaccination Ras: NONE Third COVID19 Vaccination Date: NONE Seasonal Allergies Seasonal Allergies: No Past Medical History Surgery/Hospitalization HX: ALLEY, , TONSILS Surgeries: Yes Tonsillectomy Respiratory: No Cardiac: No Neurological: No Female Reproductive Disorders: Endometriosis Genitourinary: No Gastrointestinal: No Musculoskeletal: No Endocrine: No HEENT: No Cancer: No Psychosocial: No Integumentary: No Physical Exam Vital Signs Capillary Refill : Height, Weight, BMI Height: '" Weight: lbs. oz. kg; 31.00 BMI Method: General Appearance: WD/WN, mild distress HEENT: PERRL/EOMI, pharynx normal, TM abnormal (L) (Mildly injected), other (Left ear canal is inflamed erythematous injected and moderately swollen without exudate or vesicle seen. Tender to palpation and manipulation.) Neck: non-tender, full range of motion, supple, normal inspection Respiratory: chest non-tender, lungs clear, normal breath sounds, no respiratory distress, no accessory muscle use Cardiovascular: normal peripheral pulses, regular rate, rhythm Peripheral Pulses: 2+ Radial Pulses (R), 2+ Radial Pulses (L) Gastrointestinal: normal bowel sounds, non tender, soft Neurologic/Psychiatric: alert; No normal mood/affect (Tearful affect); oriented x 3, other (All cranial nerves are intact except for a subtle droop/palsy around her left face and left eyelid lower consistent with 7th cranial nerve palsy on the left) Crainal Nerves: normal hearing, normal speech, PERRL Coordination/Gait: normal gait Motor/Sensory: no sensory deficit, no pronator drift Skin: normal color, warm/dry Progress/Results/Core Measures Results/Orders My Orders Orders - DANIEL SWEENEY Methylprednisolone Sod Succ (Solu-Medrol (11/29/21 08:00) Gabapentin Capsule/Tablet (Neurontin Cap (11/29/21 08:00) Acyclovir Capsule/Tablet (Zovirax Caps (11/29/21 08:00) Ketorolac Injection (Toradol Injection) (11/29/21 08:00) Progress Progress Note : Time: 08:03 Progress Note Cranial nerve #7 palsy. We will start her on antivirals, steroids, Toradol and gabapentin for her discomfort. 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 Departure Impression Primary Impression: Cranial nerve VII palsy Disposition: 01 HOME, SELF-CARE Condition: Stable Departure-Patient Inst. Decision time for Depature: 08:04 Referrals: ZION HAYES MD (PCP/Family) Primary Care Physician Patient Instructions: Gonzalez's Palsy (DC) Add. Discharge Instructions: Acyclovir 800 mg 5 times a day for 2 weeks to treat the infection and reduce symptoms. Medrol Dosepak take as described to reduce inflammation pain and symptoms. Tylenol 1000 mg every 8 hours as needed for pain. Ibuprofen 800 mg every 8 hours as needed for pain. Gabapentin 200 mg up to 4 times a day as needed for pain. May cause drowsiness. Follow-up with primary care doctor in 1 to 2 weeks to help manage symptoms. Symptoms usually will resolve within a few weeks to a few months. Promptly return to the ER if you are having new or worrisome symptoms outside of your left face such as visual disturbances, weakness numbness or falls. All discharge instructions reviewed with patient and/or family. Voiced understanding. Scripts Methylprednisolone (Methylprednisolone Dose Pack) 4 Mg Tab.ds.pk 4 MG PO UD for 6 Days, #21 PKG 0 Refills PER DOSE PACK INSTRUCTIONS Prov: DANIEL SWEENEY 11/29/21 Acyclovir (Acyclovir) 800 Mg Tablet 800 MG PO 5XD for 14 Days, #70 TAB 0 Refills Prov: DANIEL SWEENEY 11/29/21 Gabapentin (Gabapentin) 100 Mg Capsule 100-200 MG PO QID PRN for PAIN-BREAKTHROUGH for 7 Days, #30 CAP 0 Refills Prov: DANIEL SWEENEY 11/29/21 Work/School Note: Work Release Form Date Seen in the Emergency Department: Nov 29, 2021 Return to Work: Dec 04, 2021 Restrictions: No Restrictions Copy Copies To 1: ZION HAYES MD, TITUS J Nov 29, 2021 07:57
[2021-11-29] MEDS ORDERED: KETOROLAC 60 MG/2 ML VIAL IM ONE (08:00)
[2021-11-29] MEDS ORDERED: methylPREDNISolone 125 MG (Solu-MEDROL) VIAL IM ONE (08:00)
[2021-11-29] MEDS ORDERED: ACYCLOVIR 400 MG TABLET (ZOVIRAX) PO ONE (08:00)
[2021-11-29] MEDS ORDERED: GABAPENTIN 100 MG (NEURONTIN) CAP PO ONE (08:00)
[2021-11-29] MEDS ORDERED: ACYC-112 PO (08:09)
[2021-11-29] MEDS ORDERED: GABA-486 PO (08:09)
[2021-11-29] MEDS ORDERED: METH4TAB10 PO (08:09)
[2021-11-29 08:35] VITALS: BP 125/101
== END 2021-11-29 08:37 | disposition home or self-care (01) ==
LOC: EDUNIT# 07:41 → ER 07:43
DX: G51.0 Bell's palsy (principal); Z28.310 Unvaccinated for COVID-19
CPT/HCPCS: 99284

== ENCOUNTER 2022-03-29 11:47 | Emergency (ER) | payer BC ==
[~2022-03-29] VITALS: Ht 162.6 cm; Wt 91.0 kg
[~2022-03-29 11:47] MED LIST changes: +ACYC-112 PO; +GABA-486 PO; +METH4TAB10 PO
--- NOTE | 2022-03-29 12:31 | ED Abdominal Pain ---
General Chief Complaint: Abdominal/GI Problems Stated Complaint: ABD PAIN Nursing Triage Note: PT AMB TO ED BY POV WITH C/O UPPER ABD PAIN, N/D SINCE 0600 THIS AM. REPORTS 4 EPISODES OF DIARRHEA THIS MORNING. PT REPORTS HX GERD, BUT STATES THIS DOES NOT FEEL SIMILAR. PT HAS TAKEN TUMS AND ZOFRAN WITH NO RELIEF. History of Present Illness Date Seen by Provider: Mar 29, 2022 Time Seen by Provider: 12:31 Initial Comments Patient reports that she has been having nausea, vomiting and diarrhea along with abdominal pain. Has taken Zofran and Tums at home with no change in symptoms. Unable to keep much down. Denies recent sick contacts that she is aware of. Timing/Duration: 4-6 Hours Severity/Quality: Moderate Location: Generalized Abdomen Activities at Onset: None Modifying Factors: Improves With Antacids; Worsens With Eating; Improves With Lying down Associated Symptoms: Nausea/Vomiting Allergies and Home Medications Allergies Coded Allergies: Penicillins (Verified Allergy, Intermediate, Rash, 08/16/19) cefazolin (Verified Allergy, Intermediate, Rash, 08/16/19) Patient Home Medication List Home Medication List Reviewed: Yes Acyclovir (Acyclovir) 800 Mg Tablet, 800 MG PO 5XD Prescribed by: DANIEL SWEENEY on 11/29/21808 Citalopram Hydrobromide (Celexa) 20 Mg Tablet, 20 MG PO DAILY, (Reported) Entered as Reported by: FRANCIE QUICK on 08/16/191840 Gabapentin (Gabapentin) 100 Mg Capsule, 100-200 MG PO QID PRN for PAIN- BREAKTHROUGH Prescribed by: DANIEL SWEENEY on 11/29/21 08 Methylprednisolone (Methylprednisolone Dose Pack) 4 Mg Tab.ds.pk, 4 MG PO UD Prescribed by: DANIEL SWEENEY on 11/29/21 08 Norethindrone AC-Eth Estradiol (Loestrin 21 1-20 Tablet) 1 Each Tablet, 1 EACH PO DAILY, (Reported) Entered as Reported by: FRANCIE QUICK on 08/16/191840 Ondansetron (Ondansetron Odt) 4 Mg Tab.rapdis, 4 MG PO Q4H PRN for NAUSEA/VOMITING-1ST LINE Prescribed by: BARBARA HOPKINS on 06/02/212234 Ondansetron (Ondansetron Odt) 4 Mg Tab.rapdis, 4 MG PO Q6H PRN for NAUSEA/VOMITING Prescribed by: Emy Acuna on 03/29/22 2029 Review of Systems Review of Systems Constitutional: No chills, No dizziness, No fever Respiratory: Denies Cough, Denies Shortness of Air Cardiovascular: Denies Chest Pain, Denies Palpitations Gastrointestinal: Abdominal Pain, Diarrhea, Nausea, Vomiting Genitourinary: Denies Burning, Denies Frequency Musculoskeletal: No back pain, No muscle pain Skin: No pruritus, No rash All Other Systems Reviewed Negative Unless Noted: Yes Past Lgkcgpd-Ohpbhg-Mayajl Hx Patient Social History Tobacco Use?: No Use of E-Cig and/or Vaping dev: No Substance use?: No Alcohol Use?: No Pt feels they are or have been: No Immunizations Up To Date PED Vaccines UTD: Yes Influenza Vaccine Up-to-Date: No; Not Current First/Initial COVID19 Vaccinat: NONE Second COVID19 Vaccination Ras: NONE Third COVID19 Vaccination Date: NONE Seasonal Allergies Seasonal Allergies: No Past Medical History Surgery/Hospitalization HX: GERD, ALLEY, C SECT X2 Surgeries: Yes Tonsillectomy Respiratory: No Cardiac: No Neurological: No Last Menstrual Period: Mar 16, 2022 Female Reproductive Disorders: Endometriosis Genitourinary: No Gastrointestinal: No Musculoskeletal: No Endocrine: No HEENT: No Cancer: No Psychosocial: No Integumentary: No Family Medical History Reviewed Nursing Family Hx Physical Exam Vital Signs Vital Signs - First Documented 03/29/22 11:57 Temp 36.9 Pulse 119 Resp 20 B/P (MAP) 123/85 (98) Pulse Ox 98 O2 Delivery Room Air Capillary Refill : Less Than 3 Seconds Height/Weight/BMI Height: '" Weight: lbs. oz. kg; 34.00 BMI Method: General Appearance: WD/WN, no apparent distress Neck: non-tender, full range of motion, supple, normal inspection Respiratory: chest non-tender, lungs clear, normal breath sounds, no respiratory distress Cardiovascular: regular rate, rhythm, no edema Gastrointestinal: normal bowel sounds, soft, tenderness (diffuse) Extremities: normal range of motion, non-tender Neurologic/Psychiatric: normal mood/affect, oriented x 3 Skin: normal color, warm/dry Progress/Results/Core Measures Results/Orders Lab Results Laboratory Tests Test 03/29/22 12:20 03/29/22 12:45 Range/Units White Blood Count 12.8 H 4.3-11.0 10^3/uL Red Blood Count 5.29 H 3.80-5.11 10^6/uL Hemoglobin 15.2 11.5-16.0 g/dL Hematocrit 46 35-52 % Mean Corpuscular Volume 87 80-99 fL Mean Corpuscular Hemoglobin 29 25-34 pg Mean Corpuscular Hemoglobin Concent 33 32-36 g/dL Red Cell Distribution Width 12.2 10.0-14.5 % Platelet Count 430 H 130-400 10^3/uL Mean Platelet Volume 10.3 9.0-12.2 fL Immature Granulocyte % (Auto) 0 % Neutrophils (%) (Auto) 72 42-75 % Lymphocytes (%) (Auto) 20 12-44 % Monocytes (%) (Auto) 6 0-12 % Eosinophils (%) (Auto) 1 0-10 % Basophils (%) (Auto) 0 0-10 % Neutrophils # (Auto) 9.2 H 1.8-7.8 10^3/uL Lymphocytes # (Auto) 2.5 1.0-4.0 10^3/uL Monocytes # (Auto) 0.8 0.0-1.0 10^3/uL Eosinophils # (Auto) 0.2 0.0-0.3 10^3/uL Basophils # (Auto) 0.1 0.0-0.1 10^3/uL Immature Granulocyte # (Auto) 0.0 0.0-0.1 10^3/uL Sodium Level 136 135-145 MMOL/L Potassium Level 4.1 3.6-5.0 MMOL/L Chloride Level 103 98-107 MMOL/L Carbon Dioxide Level 22 21-32 MMOL/L Anion Gap 11 5-14 MMOL/L Blood Urea Nitrogen 11 7-18 MG/DL Creatinine 0.98 0.60-1.30 MG/DL Estimat Glomerular Filtration Rate 77 BUN/Creatinine Ratio 11 Glucose Level 87 70-105 MG/DL Calcium Level 10.0 8.5-10.1 MG/DL Corrected Calcium 9.7 8.5-10.1 MG/DL Total Bilirubin 0.4 0.1-1.0 MG/DL Aspartate Amino Transf (AST/SGOT) 78 H 5-34 U/L Alanine Aminotransferase (ALT/SGPT) 155 H 0-55 U/L Alkaline Phosphatase 114 40-136 U/L Total Protein 8.5 H 6.4-8.2 GM/DL Albumin 4.4 3.2-4.5 GM/DL Lipase 53 8-78 U/L Serum Test, Qualitative NEGATIVE NEGATIVE Urine Color YELLOW Urine Clarity CLEAR Urine pH 6.0 5-9 Urine Specific [place] 1.025 H 1.016-1.022 Urine Protein NEGATIVE NEGATIVE Urine Glucose (UA) NEGATIVE NEGATIVE Urine Ketones NEGATIVE NEGATIVE Urine Nitrite NEGATIVE NEGATIVE Urine Bilirubin NEGATIVE NEGATIVE Urine Urobilinogen 0.2 < = 1.0 MG/DL Urine Leukocyte Esterase NEGATIVE NEGATIVE Urine RBC (Auto) NEGATIVE NEGATIVE Urine RBC NONE /HPF Urine WBC 5-10 H /HPF Urine Squamous Epithelial Cells 5-10 /HPF Urine Crystals NONE /LPF Urine Bacteria MODERATE H /HPF Urine Casts NONE /LPF Urine Mucus SMALL H /LPF Urine Culture Indicated YES My Orders Orders - EMY ACUNA APRN Comprehensive Metabolic Panel (03/29/22 12:35) Lipase (03/29/22 12:35) Ua Culture If Indicated (03/29/22 12:35) Hcg,Qualitative Serum (03/29/22 12:35) Ed Iv/Invasive Line Start (03/29/22 12:35) Cbc With Automated Diff (03/29/22 12:35) Ct Abdomen/Pelvis W (03/29/22 12:35) Ondansetron Injection (Zofran Injectio (03/29/22 12:45) Ketorolac Injection (Toradol Injection) (03/29/22 12:45) Ns Iv 1000 Ml (Sodium Chloride 0.9%) (03/29/22 12:45) Iohexol Injection (Omnipaque 350 Mg/Ml 1 (03/29/22 13:15) Ns (Ivpb) (Sodium Chloride 0.9% Ivpb Bag (03/29/22 13:15) Urine Culture (03/29/22 12:45) Medications Given in ED Current Medications Medications Dose Ordered Sig/Joy Route Start Time Stop Time Status Last Admin Dose Admin Iohexol 100 ml ONCE ONCE IV 03/29/22 13:15 03/29/22 13:16 DC 03/29/22 13:23 80 ML Ketorolac Tromethamine 30 mg ONCE ONCE IVP 11/3/22 12:45 03/29/22 12:46 DC 03/29/22 12:51 30 MG Ondansetron HCl 4 mg ONCE ONCE IVP 03/29/22 12:45 03/29/22 12:46 DC 03/29/22 12:51 4 MG Sodium Chloride 100 ml ONCE ONCE IV 03/29/22 13:15 03/29/22 13:16 DC 03/29/22 13:23 80 ML Vital Signs/I&O 03/29/22 03/29/22 11:57 14:18 Temp 36.9 Pulse 119 82 Resp 20 16 B/P (MAP) 123/85 (98) 133/105 Pulse Ox 98 97 O2 Delivery Room Air Room Air 2 Blood Pressure Mean: 98 Progress Progress Note : Progress Note UA with WBC. Will go ahead and treat for UTI. WBC count slightly elevated likely secondary to vomiting. Instructed to follow up with PCP to have liver enzymes rechecked. Reasons to return to the ER were discussed with patient and she verbalized understanding. Departure Impression Primary Impression: Abdominal pain Qualified Codes: R10.13 - Epigastric pain Disposition: 01 HOME, SELF-CARE Condition: Stable Departure-Patient Inst. Decision time for Depature: 14:10 Referrals: ZION HAYES MD (PCP/Family) Primary Care Physician Patient Instructions: Small Bowel Obstruction (DC) Add. Discharge Instructions: 1. Home and rest. 2. Push fluids starting tomorrow. 3. Nothing to eat or drink the rest of today. 4. Follow up with PCP as needed. 5. Return here if worse or concerns. 6. IF you are unable to keep things down, pain get worse, or any other concerns then return to the ER immediately. All discharge instructions reviewed with patient and/or family. Voiced understanding. Scripts Ondansetron (Ondansetron Odt) 4 Mg Tab.rapdis 4 MG PO Q6H PRN for NAUSEA/VOMITING, #20 TAB 0 Refills Prov: EMY ACUNA APRN 03/29/22 EMY ACUNA APRN Mar 29, 2022 12:31
[2022-03-29] MEDS ORDERED: KETOROLAC 30 MG/ML VIAL IVP ONE (12:45)
[2022-03-29] MEDS ORDERED: ONDANSETRON 4 MG/2 ML (SDV) Z0FRAN IVP ONE (12:45)
[2022-03-29] MEDS ORDERED: NS IV 1000 ML 1,000 ML IV SCH (12:45)
[2022-03-29 12:47] LABS: BASOPHILS # (AUTO) 0.1 10^3/uL (0.0-0.1); BASOPHILS % (AUTO) 0 % (0-10); EOSINOPHILS # (AUTO) 0.2 10^3/uL (0.0-0.3); EOSINOPHILS % (AUTO) 1 % (0-10); HEMATOCRIT 46 % (35-52); HEMOGLOBIN 15.2 g/dL (11.5-16.0); LYMPHOCYTES # (AUTO) 2.5 10^3/uL (1.0-4.0); LYMPHOCYTES % (AUTO) 20 % (12-44); MEAN CORPUSCULAR HEMOGLOBIN 29 pg (25-34); MEAN CORPUSCULAR HGB CONC 33 g/dL (32-36); MEAN CORPUSCULAR VOLUME 87 fL (80-99); MEAN PLATELET VOLUME 10.3 fL (9.0-12.2); MONOCYTES # (AUTO) 0.8 10^3/uL (0.0-1.0); MONOCYTES % (AUTO) 6 % (0-12); NEUTROPHILS # (AUTO) 9.2 10^3/uL (1.8-7.8); NEUTROPHILS % (AUTO) 72 % (42-75); PLATELET COUNT 430 10^3/uL (130-400); WHITE BLOOD COUNT 12.8 10^3/uL (4.3-11.0)
[2022-03-29 12:53] LABS: BILIRUBIN,URINE NEGATIVE (NEGATIVE); CLARITY,URINE CLEAR; COLOR,URINE YELLOW; GLUCOSE, URINE (UA) NEGATIVE (NEGATIVE); KETONES,URINE NEGATIVE (NEGATIVE); LEUKOCYTE ESTERASE ,URINE NEGATIVE (NEGATIVE); NITRITE,URINE NEGATIVE (NEGATIVE); PROTEIN,URINE NEGATIVE (NEGATIVE)
[2022-03-29 12:54] LABS: ALBUMIN 4.4 GM/DL (3.2-4.5)
[2022-03-29 12:55] LABS: POTASSIUM 4.1 MMOL/L (3.6-5.0)
[2022-03-29 12:57] LABS: TOTAL PROTEIN 8.5 GM/DL (6.4-8.2)
[2022-03-29 12:59] LABS: BILIRUBIN,TOTAL 0.4 MG/DL (0.1-1.0)
[2022-03-29 13:00] LABS: CREATININE SERUM 0.98 MG/DL (0.60-1.30)
[2022-03-29] MEDS ORDERED: NS 100 ML (IVPB) BAG IV ONE (13:15)
[2022-03-29] MEDS ORDERED: IOHEXOL 350 MG/ML 100 ML (OMNIPAQUE 350) VIAL IV ONE (13:15)
[2022-03-29 13:16] LABS: BACTERIA,URINE MODERATE /HPF
--- NOTE | 2022-03-29 13:47 | Diagnostic Imaging Report ---
PROCEDURE: CT abdomen and pelvis with contrast. TECHNIQUE: Multiple contiguous axial images were obtained through the abdomen and pelvis after administration of intravenous contrast. Auto Exposure Controls were utilized during the CT exam to meet ALARA standards for radiation dose reduction. All CT scans use one or more of the following dose optimizing techniques: automated exposure control, MA and/or KvP adjustment based on patient size and exam type or iterative reconstruction. INDICATION: Upper abdominal pain and diarrhea. COMPARISON: No prior studies are available for comparison. FINDINGS: The lung bases are clear. The liver demonstrates diffuse low attenuation, consistent with hepatic steatosis. Gallbladder is surgically absent. No biliary ductal dilatation is seen. The pancreas and spleen are unremarkable. No adrenal mass is detected. Kidneys are unremarkable. Aorta is nonaneurysmal. There are some mildly distended and fluid-filled small bowel loops in the left abdomen and to a lesser degree in the right abdomen and pelvis. Colon is not distended. There is no free fluid or fluid collection identified. The uterus and bladder are unremarkable. Bony structures are nonacute. IMPRESSION: 1. Hepatic steatosis. 2. Nonspecific, mildly dilated and fluid-filled small bowel loops throughout the abdomen. Early or partial small bowel obstruction cannot be entirely excluded. Small bowel study may be useful for further evaluation. No other significant abnormality is seen. Dictated by: Dictated on workstation # [id number]
[2022-03-29 14:18] VITALS: BP 133/105
[2022-03-29] MEDS ORDERED: ONDA4TAB11 PO (14:25)
== END 2022-03-29 14:18 | disposition home or self-care (01) ==
LOC: EDUNIT# 11:47 → ER 11:49
DX: R10.84 Generalized abdominal pain (principal); D72.829 Elevated white blood cell count, unspecified; Z32.02 Encounter for pregnancy test, result negative; Z28.310 Unvaccinated for COVID-19; Z87.19 Personal history of other diseases of the digestive system
CPT/HCPCS: 36415; 74177; 80053; 81000; 83690; 84703; 85025; 87088

== ENCOUNTER → 2023-03-18 | Outpatient (CLI) | payer BC ==
--- NOTE | 2023-03-18 13:01 | Diagnostic Imaging Report ---
INDICATION: Routine screening. No prior studies are available for comparison. This is a baseline study. 2-D and 3-D bilateral screening mammography was performed with CAD. Both breasts are heterogeneously dense, limiting the sensitivity of mammography. No mass or malignant-appearing microcalcifications are seen. The axillae are unremarkable. IMPRESSION: No mammographic features suspicious for malignancy are identified. ACR BI-RADS Category 1: Negative. Result letter will be mailed to the patient. Note: At least 10% of breast cancer is not imaged by mammography. BI-RADS Category 1 Dictated by: Dictated on workstation # [id number]
== END ==
LOC: RAD 10:40
PROVIDERS: ATTEND Family Medicine
DX: Z12.31 Encounter for screening mammogram for malignant neoplasm of breast (principal)
CPT/HCPCS: 77063; 77067